=== PATIENT | male | born 1970 | race Caucasian/White ===

== ENCOUNTER 2023-09-20 11:05 | Inpatient (IN) | payer MEDICAID, OTHER ==
[~2023-09-20] VITALS: Ht 165.1 cm; Wt 81.8 kg
[2023-09-20 11:38] LABS: BASOPHILS % 0.6 % (0.0-2.0); EOSINOPHILS % 1.4 % (0.0-5.0); HEMATOCRIT. 35.1 % (42.0-52.0); HEMOGLOBIN. 11.7 g/dL (14.0-18.0); LYMPHOCYTES % 17.8 % (20.0-50.0); MEAN CORPUSCULAR HEMOGLOBIN 27.8 pg (28.0-32.0); MEAN CORPUSCULAR HGB CONC 33.5 g/dL (31.0-37.0); MEAN CORPUSCULAR VOLUME 83.1 fL (80.0-94.0); MEAN PLATELET VOLUME 7.9 fl (7.4-10.4); MONOCYTES % 7.9 % (2.0-8.0); NEUTROPHILS % 72.3 % (40.0-76.0); PLATELET 361 x1000/uL (130-400); RED BLOOD CELL COUNT 4.22 mill/uL (4.7-6.1); RED CELL DISTRIBUTION WIDTH 16.2 % (11.6-14.6); WHITE BLOOD COUNT 6.7 x1000/uL (4.5-11.0)
[2023-09-20 11:44] LABS: CHLORIDE 115 mEq/L (98-107); POTASSIUM 5.3 mEq/L (3.5-5.1); SODIUM 138 mEq/L (136-145)
[2023-09-20 11:45] LABS: CALCIUM 6.9 mg/dL (8.7-10.4); CARBON DIOXIDE 17 mEq/L (21-32)
[2023-09-20 11:50] LABS: CREATININE 3.7 mg/dL (0.6-1.3); GLUCOSE 184 mg/dL (70-105); UREA NITROGEN BLOOD 27 mg/dL (9-23)
[2023-09-20 11:51] LABS: ALANINE AMINOTRANSFERASE 38 IU/L (10-49)
[2023-09-20 11:52] LABS: ALBUMIN 2.3 g/dL (3.2-4.8); ASPARTATE AMINOTRANSFERASE 54 IU/L (<34); BILIRUBIN TOTAL 0.3 mg/dL (0.1-1.0); PROTEIN TOTAL 4.4 g/dL (6.0-8.3)
[2023-09-20] MEDS ORDERED: CALCIUM GLUCONATE 1,000 MG in DEXT 5% WATER 100 ML IV ONE (12:15)
[2023-09-20 12:39] VITALS: PULSE 65; RESP 18; O2SAT 100
[2023-09-20] MEDS: ALBUTEROL (0.083%) 2.5MG/3ML NEB HHN SCH (12:39)
[2023-09-20 13:35] VITALS: PULSE 73; RESP 18; O2SAT 100
[2023-09-20] MEDS: CALCIUM GLUCONATE 1GM PREMIX 50 ML IV SCH (13:43)
[2023-09-20] MEDS: DEXTROSE 50% WATER 50ML SYRINGE IV ONE (14:26)
[2023-09-20] MEDS: INSULIN REGULAR (HUMULIN R) 300UNITS/3ML VIAL IV ONE (14:26)
[2023-09-20] MEDS: SODIUM BICARBONATE 8.4% 1 MEQ/ML 50ML SYR IV ONE (14:26)
[2023-09-20] MEDS: HYDRALAZINE 20MG/ML VIAL IV ONE (14:30)
[2023-09-20 18:57] VITALS: BP 129/76; PULSE 96; RESP 18; TEMP 98.2
[2023-09-20 19:50] VITALS: BP 160/77; PULSE 95; RESP 19; TEMP 97.5
[2023-09-20 20:00] VITALS: BP 160/77; PULSE 95; RESP 19; TEMP 97.5
[2023-09-20] MEDS: SODIUM CHLORIDE 0.9% 1,000 ML IV SCH (20:37)
[2023-09-20] MEDS ORDERED: MORPHINE SULFATE 2 MG/ML CPJ (NOT FOR IM USE) IV PRN (23:15)
[2023-09-20] MEDS ORDERED: ACETAMINOPHEN 650MG SUPP PR PRN (23:15)
[2023-09-20] MEDS ORDERED: ONDANSETRON HCL 4MG/2ML INJ IV PRN (23:15)
[2023-09-20] MEDS ORDERED: SODIUM CHLORIDE 0.9% 1,000 ML IV SCH (23:15)
[2023-09-21] VITALS: BP 174/79; PULSE 73; RESP 17; TEMP 97.7
[2023-09-21] MEDS: CLONIDINE 0.1MG TABLET PO PRN (01:49)
[2023-09-21 02:42] LABS: CLARITY URINE CLEAR (CLEAR); COLOR URINE YELLOW (YELLOW); GLUCOSE URINE 2+ (NEGATIVE); KETONES URINE TRACE (NEGATIVE); LEUKOCYTE ESTERASE URINE NEGATIVE (NEGATIVE); NITRITE URINE NEGATIVE (NEGATIVE); OCCULT BLOOD URINE TRACE (NEGATIVE); PROTEIN URINE 4+ (NEGATIVE); SPECIFIC GRAVITY URINE 1.018 (1.005-1.030); UROBILINOGEN URINE 0.2 E.U./dL (0.2-1.0)
[2023-09-21 04:00] VITALS: BP_SYST 159; BP_SYST 171; BP_DIAS 62; BP_DIAS 71; PULSE 66; RESP 19; TEMP 97.9
[2023-09-21 04:05] LABS: BACTERIA URINE TRACE; RBC URINE 0-2 /hpf (0-2); SQUAMOUS EPITHELIAL CELL URINE 1+ /lpf (RARE/1+); WBC URINE NONE SEEN /hpf (0-2)
[2023-09-21 07:12] LABS: PHOSPHORUS 4.8 mg/dL (2.5-4.9)
[2023-09-21] MEDS ORDERED: NALOXONE HCL 0.4MG/ML VIAL IV PRN (07:30)
[2023-09-21 07:39] LABS: HEPATITIS B SURFACE ANTIGEN NEGATIVE (Negative)
[2023-09-21 08:00] VITALS: BP 117/74; PULSE 89; RESP 20; TEMP 97.2
[2023-09-21 08:00] LABS: HEPATITIS A AB IGM NEGATIVE (Negative); HEPATITIS B CORE AB IGM NEGATIVE (Negative)
[2023-09-21 08:01] LABS: HEPATITIS C AB NON REACTIVE (Neg) (Negative)
[2023-09-21] MEDS: ENOXAPARIN 30MG/0.3ML SYR SUBCUT SCH (09:33)
[2023-09-21] MEDS: HYDRALAZINE HCL 25MG TABLET PO SCH (09:34)
[2023-09-21] MEDS: METOPROLOL TARTRATE 50MG TABLET PO SCH (09:34)
[2023-09-21] MEDS: THIAMINE HCL 100MG TABLET PO SCH (09:34)
[2023-09-21 12:07] VITALS: BP 132/60; PULSE 52; RESP 18; TEMP 97.4
[2023-09-21 16:26] VITALS: BP 195/43; PULSE 55; RESP 18; TEMP 97.9
[2023-09-21 17:56] LABS: BASOPHILS % 0.9 % (0.0-2.0); EOSINOPHILS % 3.2 % (0.0-5.0); HEMATOCRIT. 34.6 % (42.0-52.0); HEMOGLOBIN. 11.7 g/dL (14.0-18.0); LYMPHOCYTES % 20.4 % (20.0-50.0); MEAN CORPUSCULAR HEMOGLOBIN 28.6 pg (28.0-32.0); MEAN CORPUSCULAR HGB CONC 33.9 g/dL (31.0-37.0); MEAN CORPUSCULAR VOLUME 84.4 fL (80.0-94.0); MONOCYTES % 11.3 % (2.0-8.0); NEUTROPHILS % 64.2 % (40.0-76.0); PLATELET 385 x1000/uL (130-400); RED CELL DISTRIBUTION WIDTH 16.5 % (11.6-14.6); WHITE BLOOD COUNT 6.6 x1000/uL (4.5-11.0)
[2023-09-21 18:02] LABS: POTASSIUM 5.3 mEq/L (3.5-5.1)
[2023-09-21 18:08] LABS: CREATININE 3.9 mg/dL (0.6-1.3)
[2023-09-21 20:00] VITALS: BP 167/60; PULSE 59; RESP 18; TEMP 97.7
[2023-09-22] VITALS: BP 149/80; PULSE 56; RESP 18; TEMP 97.8
[2023-09-22 08:00] VITALS: BP 160/84; PULSE 58; RESP 18; TEMP 97.6
[2023-09-22 09:11] LABS: ANTI-DNA DOUBLE STRANDED QUANT < 1 IU/mL (0-9); COMPLEMENT C3 93 mg/dL (82-167); COMPLEMENT C4 23 mg/dL (12-38)
[2023-09-22 12:00] VITALS: BP 157/68; PULSE 64; RESP 22; TEMP 97.3
[2023-09-22 14:36] VITALS: BP 157/68; PULSE 64; TEMP 97.3; O2SAT 100
[2023-09-25 13:06] LABS: ATYPICAL P-ANCA <1:20 titer (Neg:<1:20); CYTOPLASMIC C-ANCA <1:20 titer (Neg:<1:20); PERINUCLEAR P-ANCA <1:20 titer (Neg:<1:20)
[2023-09-25 19:10] LABS: ANTI-MYELOPEROXIDASE AB < 0.2 units (0.0-0.9); ANTI-PROTEINASE 3 ABS < 0.2 units (0.0-0.9)
[2023-09-26 04:10] LABS: ANA IFA Negative (.)
== END 2023-09-22 16:19 | disposition home or self-care (01) | DRG 469 ==
LOC: ER 11:05 → EDBEDREQSVC 13:43 → EDBEDREQ 13:43 → EDBEDREQTM 13:43 → EDBEDREQ 14:11 → 8WST 14:12 → EDBEDREQTM 14:14
PROVIDERS: ADMIT Internal Medicine Nephrology; ATTEND Internal Medicine Nephrology
DX: N17.9 Acute kidney failure, unspecified (principal); E43 Unspecified severe protein-calorie malnutrition; L89.893 Pressure ulcer of other site, stage 3; D63.1 Anemia in chronic kidney disease; E11.22 Type 2 diabetes mellitus with diabetic chronic kidney disease; G54.6 Phantom limb syndrome with pain; E11.42 Type 2 diabetes mellitus with diabetic polyneuropathy; E11.51 Type 2 diabetes mellitus with diabetic peripheral angiopathy without gangrene; E11.622 Type 2 diabetes mellitus with other skin ulcer; N18.9 Chronic kidney disease, unspecified; I12.9 Hypertensive chronic kidney disease with stage 1 through stage 4 chronic kidney disease, or unspecified chronic kidney disease; E78.00 Pure hypercholesterolemia, unspecified; Z89.511 Acquired absence of right leg below knee; Z68.30 Body mass index [BMI] 30.0-30.9, adult
CPT/HCPCS: 36415; 71045; 76770; 80048; 80053; 81003; 83520; 84100; 84153; 85025; 86160; 86225; 86256; 86705; 86709; 87340; 93005; 94640; 97166; 99291; J0360; J0610; J1650; J1815; J3490; J7030; J7060